=== PATIENT | female | born 1990 | race Caucasian/White ===

== ENCOUNTER 2017-03-14 15:43 | Emergency (ER) | payer MEDICAID ==
[~2017-03-14] VITALS: Ht 162.6 cm; Wt 84.1 kg
[~2017-03-14 15:43] MED LIST: DOCU250C91 PO; IBUP-2070 PO; PREN1TAB80 PO
[2017-03-14] MEDS ORDERED: NEOMYCIN/POLYMYXIN B/HYDROCORT 7.5 ML OPHTHALMIC SUSPENSION OS ONE (17:30)
[2017-03-14] MEDS ORDERED: IBUPROFEN 800 MG TABLET PO ONE (17:30)
[2017-03-14 18:21] LABS: APPEARANCE,URINE CLEAR (CLEAR); GLUCOSE, URINE (UA) NEGATIVE (NEGATIVE); KETONES,URINE NEGATIVE (NEGATIVE); LEUKOCYTE ESTERASE ,URINE NEGATIVE (NEGATIVE); OCCULT BLOOD,URINE NEGATIVE (NEGATIVE); PROTEIN,URINE NEGATIVE (NEGATIVE)
[2017-03-14 18:23] LABS: ADD UA MICROSCOPIC NO
[2017-03-14 18:41] VITALS: BP 128/64
== END 2017-03-14 19:14 | disposition home or self-care (01) ==
LOC: EMS 15:46
DX: K43.9 Ventral hernia without obstruction or gangrene (principal); H10.9 Unspecified conjunctivitis
CPT/HCPCS: 99284

== ENCOUNTER 2017-06-05 14:31 | Emergency (ER) | payer MEDICAID ==
[~2017-06-05] VITALS: Ht 157.5 cm; Wt 90.9 kg
[2017-06-05] MEDS ORDERED: ACETAMINOPHEN 500 MG TABLET PO ONE (18:00)
[2017-06-05] MEDS ORDERED: KETOROLAC TROMETHAMINE 60 MG/2 ML VIAL IM ONE (18:00)
[2017-06-05] MEDS ORDERED: KETOROLAC TROMETHAMINE 30 MG/ML VIAL IVP ONE (18:15)
[2017-06-05 20:08] VITALS: BP 119/75
== END 2017-06-05 20:11 | disposition home or self-care (01) ==
LOC: EMS 14:32
DX: K43.9 Ventral hernia without obstruction or gangrene (principal); J04.0 Acute laryngitis; J02.9 Acute pharyngitis, unspecified; E66.9 Obesity, unspecified; J06.9 Acute upper respiratory infection, unspecified; Z68.36 Body mass index [BMI] 36.0-36.9, adult
CPT/HCPCS: 96374; 99284; J1885; 99285

== ENCOUNTER 2024-10-21 18:12 | Emergency (ER) | payer MEDICAID ==
[~2024-10-21] VITALS: Ht 157.5 cm; Wt 76.8 kg
[2024-10-21 18:29] VITALS: BP 125/97; PULSE 84; RESP 18; TEMP 97.6; O2SAT 97
[2024-10-21] MEDS ORDERED: TOBR5DRO44 OU (19:46)
== END 2024-10-21 20:06 | disposition home or self-care (01) ==
LOC: EMS 18:12
DX: H10.89 Other conjunctivitis (principal)
CPT/HCPCS: 99283; Z7502

== ENCOUNTER 2024-10-29 17:16 | Emergency (ER) | payer MEDICAID ==
[~2024-10-29] VITALS: Ht 162.6 cm; Wt 75.9 kg
[~2024-10-29 17:16] MED LIST changes: -DOCU250C91 PO; -IBUP-2070 PO; -PREN1TAB80 PO; +TOBR5DRO44 OU
[2024-10-29 20:33] VITALS: BP 125/97; PULSE 107; RESP 18; TEMP 98.2; O2SAT 96
[2024-10-29] MEDS ORDERED: CLIN-142 PO (23:21)
[2024-10-29] MEDS: CLINDAMYCIN PHOS 150 MG/ML 4 ML VIAL IM ONE (23:32)
[2024-10-29] MEDS: TraMADol HCL 50 MG TABLET PO ONE (23:32)
[2024-10-31] MEDS ORDERED: SULF-261 PO (11:46)
== END 2024-10-29 23:41 | disposition home or self-care (01) ==
LOC: EMS 17:18
DX: K13.0 Diseases of lips (principal)
CPT/HCPCS: 99283; 96372; J3490